=== PATIENT | male | born 1980 | race African-American/Black ===

== ENCOUNTER 2020-07-25 08:27 | Emergency (ER) | payer SELFPAY ==
[~2020-07-25] VITALS: Ht 180.3 cm; Wt 85.2 kg
[2020-07-25] MEDS ORDERED: ISOVUE-370 76% 100ML VIAL As Ordered ONE (09:32)
[2020-07-25 09:39] LABS: BASO % 0.5 % (0.0-1.0); EOS # 0.1 10^3/uL (0.0-0.5); EOS % 0.7 % (0.0-3.0); HEMATOCRIT 42.6 % (42.0-52.0); HEMOGLOBIN 14.3 g/dl (13.5-17.5); LYMPH # 1.8 10^3/uL (1.5-5.0); LYMPH % 21.4 % (24.0-44.0); MEAN CORPUSCULAR HEMOGLOBIN 28.2 pg (27.0-33.0); MEAN CORPUSCULAR HGB CONC 33.6 g/dl (32.0-36.5); MONO # 1.3 10^3/uL (0.0-0.8); MONO % 15.3 % (0.0-5.0); NEUTROPHILS # 5.3 10^3/uL (1.5-8.5); NEUTROPHILS % 61.7 % (36.0-66.0); PLATELET COUNT, AUTOMATED 193 10^3/uL (150-450); RED BLOOD COUNT 5.07 10^6/uL (4.30-6.10); WHITE BLOOD COUNT 8.5 10^3/uL (4.0-10.0)
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
[2020-07-25 10:12] LABS: ALBUMIN 4.2 GM/DL (3.2-5.2); BILIRUBIN,DIRECT 0.4 MG/DL (0.0-0.2); BILIRUBIN,TOTAL 2.3 MG/DL (0.2-1.0); TOTAL PROTEIN 7.2 GM/DL (6.4-8.2)
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
[2020-07-25] MEDS ORDERED: AMPICILLIN SOD/SULBACTAM SOD 3 GM in D5W MINI-BAG PLUS 100 ML IV ONE (11:00)
[2020-07-25] MEDS ORDERED: dexameTHASONE 20MG/5ML VIAL (J1100 PER 1MG) IV ONE (11:00)
[2020-07-25 12:43] VITALS: BP 139/90
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
--- NOTE | 2020-07-27 19:57 | ED PDOC ---
Post-Departure Follow-Up called patient to see how follow up at [facility] went. Pt states he did not go to [facility] ED for further evaluation/treatment. States he cannot afford it. Strongly advised patient to get further evaluation/treatment required when patient was transferred. Pt agreeable. All questions addressed. GALINA CALDERON TAYLOR E. PA-C Jul 27, 2020 19:57
== END 2020-07-25 12:21 | disposition short-term general hospital (02) ==
LOC: M ED 08:27
DX: S02.31XA Fracture of orbital floor, right side, initial encounter for closed fracture (principal); S43.401A Unspecified sprain of right shoulder joint, initial encounter; S13.4XXA Sprain of ligaments of cervical spine, initial encounter; Y04.0XXA Assault by unarmed brawl or fight, initial encounter; Y07.50 Unspecified non-family member, perpetrator of maltreatment and neglect; Y92.9 Unspecified place or not applicable; Y93.9 Activity, unspecified; Y99.9 Unspecified external cause status; H11.33 Conjunctival hemorrhage, bilateral; E80.6 Other disorders of bilirubin metabolism
CPT/HCPCS: 70450; 70486; 71260; 72125; 73030; 74177; 80047; 80076; 81001; 82550; 83690; 85025; 96365; 96375; 99284; J1100; Q9967